=== PATIENT | male | born 1995 | race Caucasian/White ===

== ENCOUNTER 2017-03-03 07:56 | Emergency (ER) | payer SELFPAY ==
[~2017-03-03] VITALS: Ht 177.8 cm; Wt 86.2 kg
[2017-03-03] MEDS ORDERED: FLUORESCEIN 1MG EYE STRIP. ONE (08:06)
[2017-03-03] MEDS ORDERED: TETRACAINE 0.5% OPHTH SOLUTION 4ML BOTTLE. ONE (08:07)
[2017-03-03] MEDS ORDERED: TOBR5DRO3 OS (08:56)
[2017-03-03] MEDS ORDERED: CYCL2DRO3 OP (08:56)
[2017-03-03] MEDS ORDERED: HYDR-2758 PO (08:56)
--- NOTE | 2017-03-03 08:57 | PHYS DOC ---
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 He does wear extended-wear contact lenses and sometimes he does sleep in them overnight. This particular irritation began after waking up from a nap and on the afternoon area he denies any fevers, chills, URI symptoms, drainage from his eye or visual loss. He has the foreign body sensation in the center of his eye is worse with blinking there , there is some photophobia and he denies any eyelid swelling or facial problems. He's had no rash, direct trauma to his face, he still wears his contact lenses despite the discomfort. He took them out this morning secondary to pain and redness that has increased over the last 24 hours. Smoker, his tetanus shot is also not up-to-date. Review of Systems Review of Systems Constitutional: Denies fever or chills [] Eyes: Denies change in visual acuity, he does complain of eye pain and redness and foreign body sensation. HENT: Denies nasal congestion or sore throat [] Respiratory: Denies cough or shortness of breath [] Cardiovascular: No additional information not addressed in HPI [] GI: Denies abdominal pain, nausea, vomiting, bloody stools or diarrhea [] : Denies dysuria or hematuria [] Musculoskeletal: Denies back pain or joint pain [] Integument: Denies rash or skin lesions [] Neurologic: Denies headache, focal weakness or sensory changes [] Endocrine: Denies polyuria or polydipsia [] Current Medications Current Medications Current Medications Medications (Trade) Dose Ordered Sig/Aramis Start Time Stop Time Status Last Admin Dose Admin Fluorescein Sodium (Ful-Elizabeth 1mg) 1 strip STK-MED ONCE 03/03/17 08:06 03/03/17 08:07 DC Tetracaine HCl (Tetracaine) 40 drop STK-MED ONCE 03/03/17 08:07 03/03/17 08:08 DC Allergies Allergies Allergies Coded Allergies Type Severity Reaction Last Updated Verified No Known Drug Allergies 03/03/17 No Physical Exam Physical Exam Constitutional: Well developed, well nourished, no acute distress, non-toxic appearance. [] HENT: Normocephalic, atraumatic, bilateral external ears normal, oropharynx moist, no oral exudates, nose normal. [] Eyes: PERRLA, EOMI, conjunctiva normal, no discharge. [] Neck: Normal range of motion, no tenderness, supple, no stridor. [] Skin: Warm, dry, no erythema, no rash. [] Neurologic: Alert and oriented X 3, normal motor function, normal sensory function, no focal deficits noted. [] Psychologic: Affect normal, judgement normal, mood normal. [] Complete slit-lamp exam at the bedside. After instilling tetracaine, floursein stain in the left eye facilitated a bed exam patient was placed in a sling that machine anterior chambers are deep and quiet there is no cell and flare. The lens was clear in the proper place. The cornea did demonstrate a small shallow abrasion/ulcer at the 4 o'clock position 3-4 mm out of the center of the iris. There is no Ron sign and there is no evidence of rink sign or dendrites. Lids lacrimals and conjunctiva were within normal limits. There is mild injection of the bulbar conjunctiva. There is no limbic injection. Patient's pupillary exam is normal except movements are intact for soft touch. Inverted eyelids demonstrates no foreign body under the eyelid. EKG EKG [] Radiology/Procedures Radiology/Procedures [] Course & Med Decision Making Course & Med Decision Making Pertinent Labs and Imaging studies reviewed. (See chart for details) he is a contact lens wearer and wears them inappropriately for too long and has developed either an ulcer or shallow abrasion secondary to contact lens use. He will be placed on appropriate antibiotics and ophthalmology follow-up in the next 12-24 hours for repeat evaluation by slit lamp. I also encouraged him not to wear the contact lens for at least 2 weeks until this infection clears up and follow-up with a director private to get appear glasses to protect his eyes while working outside. He's been given antibiotic ointment as well as Cyclogyl and a tetanus shot Impression: Corneal ulcer/abrasion Disposition: PCP follow-up/ophthalmology follow-up in 12-24 hours for repeat slit lamp exam continue on appropriate therapy. [] Dragon Disclaimer Dragon Disclaimer This chart was dictated in whole or in part using Voice Recognition software in a busy, high-work load, and often noisy Emergency Department environment. It may contain unintended and wholly unrecognized errors or omissions. 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 I would encourage her to not wear contact lenses for prolonged periods of time but use daily disposables to prevent the possibility of developing corneal ulcer. This potentially a eye threatening injury that is not treated properly or aggressively may demonstrate improved problematic in the future. Please return for any new or increasing symptoms or if you have any question concerns. Scripts Hydrocodone Bit/Acetaminophen (HYDROCODONE-APAP 5-325 ) 1 Each Tablet 1-2 TAB PO PRN Q6HRS Y for PAIN for 5 Days, #10 TAB 0 Refills Prov: JOSE RAMON GONZALES MD 03/03/17 Cyclopentolate Hcl (CYCLOGYL) 2 Ml Drops 2 ML OP BID for 3 Days, DROP Prov: JOSE RAMON GONZALES MD 03/03/17 Tobramycin/Dexamethasone (TOBRADEX ST EYE DROPS) 5 Ml Drops.susp 1 DROP OS QID, #5 ML Prov: JOSE RAMON GONZALES MD 03/03/17 Problem Qualifiers JOSE RAMON GONZALES MD Mar 03, 2017 08:57
[2017-03-03] MEDS ORDERED: CYCLOPENTOLATE 1% OPTH SOLUTION 2ML BOTTLE. OS ONE (09:10)
[2017-03-03] MEDS ORDERED: ERYTHROMYCIN 0.5% OPHTH OINTMENT 1GM TUBE. OS ONE (09:10)
[2017-03-03] MEDS ORDERED: DIPHTH,PERTUSS(ACELL),TET TOX 0.5 ML DISP.SYRIN. VAX IM ONE (09:15)
== END 2017-03-03 09:03 | disposition home or self-care (01) ==
LOC: ER 07:56
DX: H16.002 Unspecified corneal ulcer, left eye (principal); H18.822 Corneal disorder due to contact lens, left eye; F17.210 Nicotine dependence, cigarettes, uncomplicated
CPT/HCPCS: 90471; 90715; 99283-25